=== PATIENT | male | born 1995 ===

== ENCOUNTER 2020-04-01 11:52 | Emergency (ER) | payer SELFPAY ==
[2020-04-01] MEDS ORDERED: SODIUM CHLORIDE 0.9% 1000 ML 1,000 ML IV ONE (12:42)
[2020-04-01] MEDS ORDERED: ONDANSETRON 4 MG/2 ML INJ IV ONE (12:42)
[2020-04-01] MEDS ORDERED: MORPHINE 4 MG/1 ML INJ IV ONE (12:42)
--- NOTE | 2020-04-01 12:48 | Event Note ---
ED Screening Note Date of service: 04/01/20 Time: 12:44 ED Screening Note: 25-year-old male presents to the emergency room stating he was sent from my clinic to rule out appendicitis. Patient states that he started having right lower quadrant pain last night approximately 9 PM. Patient admits to nausea vomiting fever and chills but denies any diarrhea or constipation. Patient denies any testicular pain testicular swelling no penile discharge or dysuria. Patient denies any past medical history currently takes no medications and has no known drug allergies. Patient states he last ate about 7 PM yesterday. Patient denies any surgeries. Reports he does not take any medications on a daily basis. Medical Records Coder [id number] was used This initial assessment/diagnostic orders/clinical plan/treatment(s) is/are subject to change based on patients health status, clinical progression and re- assessment by fellow clinical providers in the ED. Further treatment and workup at subsequent clinical providers discretion. Patient/guardian urged not to elope from the ED as their condition may be serious if not clinically assessed and managed. Initial orders include:
[2020-04-01 13:44] LABS: Basophils % (Auto) 0.1 % (0.0-1.8); Hematocrit 44.4 % (35.5-45.6); Hemoglobin 15.3 gm/dl (11.8-15.2); Lymphocytes # (Auto) 0.9 K/mm3 (1.2-5.4); Lymphocytes % (Auto) 4.8 % (13.4-35.0); Mean Corpuscular HGB Conc 35 % (32-34); Mean Corpuscular Volume 88 fl (84-94); Monocytes # (Auto) 1.2 K/mm3 (0.0-0.8); Monocytes % (Auto) 6.5 % (0.0-7.3); Platelet Count 301 K/mm3 (140-440); Red Blood Count 5.04 M/mm3 (3.65-5.03); Red Cell Distribution Width 12.9 % (13.2-15.2)
[2020-04-01 14:05] LABS: Alanine Aminotransferase 30 units/L (7-56); BUN/Creatinine Ratio 13; Blood Urea Nitrogen 16 mg/dL (9-20); Calcium 9.4 mg/dL (8.4-10.2); Hemolysis Index 10
[2020-04-01] MEDS ORDERED: PIPERACIL/TAZOBACTA 4.5/NS 100 4.5 GM/100 ML VIAL IV ONE (14:16)
--- NOTE | 2020-04-01 14:27 | Emergency Department Report ---
ED Abdominal Pain HPI - General Chief Complaint: Abdominal Pain Stated Complaint: ABD PAIN Time Seen by Provider: 04/01/20 12:40 Source: patient Mode of arrival: Ambulatory Limitations: No Limitations - History of Present Illness Initial Comments: This is a 25-year old [place]ian-speaking man who has had abdominal pain since 8:00 last night. At family's history in [place]. He has had a constant nonmigratory pain in the right lower quadrant. Moved his bowels at 9:00. It was normal. He is not complaining of nausea at this time. He felt like he probably had a fever and refers some chills. He did not actually measure his temperature. He went to [facility] and was sent here to rule out appendicitis. Patient denies any problem or swelling. He denies any previous operation. He denies taking any routine medications or previous hospitalizations. MD Complaint: abdominal pain -: Gradual, hour(s) Location: RLQ Radiation: none Migration to: no migration Severity: moderate, severe Quality: aching Consistency: constant Improves With: nothing Worsens With: nothing Associated Symptoms: denies other symptoms, fever (Subjective) - Related Data Previous Rx's Medication Instructions Recorded Last Taken Type HYDROcodone/APAP 5-325 [[place] 1 each PO Q6HR PRN #7 tablet 04/01/20 Unknown Rx 5/325] Allergies Allergy/AdvReac Type Severity Reaction Status Date / Time No Known Allergies Allergy Unverified 04/01/20 12:22 ED Review of Systems ROS: Stated complaint: ABD PAIN Other details as noted in HPI Constitutional: see HPI, chills, fever Eyes: denies: eye pain, eye discharge, vision change ENT: denies: ear pain, throat pain Respiratory: denies: cough, shortness of breath, wheezing Cardiovascular: denies: chest pain, palpitations Endocrine: no symptoms reported Gastrointestinal: abdominal pain. denies: nausea, diarrhea Genitourinary: denies: urgency, dysuria Musculoskeletal: denies: back pain, joint swelling, arthralgia Skin: denies: rash, lesions Neurological: denies: headache, weakness, paresthesias Psychiatric: denies: anxiety, depression Hematological/Lymphatic: denies: easy bleeding, easy bruising ED Past Medical Hx - Past Medical History Previous Medical History?: No - Surgical History Past Surgical History?: No - Social History Smoking Status: Never Smoker - Medications Home Medications: Home Medications Medication Instructions Recorded Confirmed Last Taken Type HYDROcodone/APAP 5-325 [[place] 1 each PO Q6HR PRN #7 tablet 04/01/20 Unknown Rx 5/325] ED Physical Exam - General Limitations: No Limitations General appearance: alert, in no apparent distress - Head Head exam: Present: atraumatic, normocephalic - Eye Eye exam: Present: normal appearance. Absent: scleral icterus - ENT ENT exam: Present: mucous membranes moist - Neck Neck exam: Present: normal inspection - Respiratory Respiratory exam: Present: normal lung sounds bilaterally. Absent: respiratory distress - Cardiovascular Cardiovascular Exam: Present: regular rate, normal rhythm. Absent: systolic murmur, diastolic murmur, rubs, gallop - GI/Abdominal GI/Abdominal exam: Present: soft, tenderness (Right lower quadrant to deep palpation only), normal bowel sounds. Absent: distended, guarding, rebound, rigid, organomegaly, mass, bruit, pulsatile mass, hernia - Rectal Rectal exam: Present: deferred - Extremities Exam Extremities exam: Present: normal inspection - Back Exam Back exam: Present: normal inspection - Neurological Exam Neurological exam: Present: alert, oriented X3, CN II-XII intact. Absent: motor sensory deficit - Psychiatric Psychiatric exam: Present: normal affect, normal mood - Skin Skin exam: Present: warm, dry, intact, normal color. Absent: rash ED Course Vital Signs 04/01/20 04/01/20 04/01/20 12:22 14:25 15:05 Temperature 98.9 F 98.2 F Pulse Rate 89 98 H Respiratory 16 16 16 Rate Blood Pressure 152/88 127/73 [Right] O2 Sat by Pulse 98 99 99 Oximetry - Reevaluation(s) Reevaluation #1: Presumptively, the patient has appendicitis. He will be given analgesia and IV fluids. He is given empiric antibiotic coverage. CT scan is yet pending. He is noted to have an elevated white blood cell count and is a bit hemoconcentrated. His glucose slightly elevated. Chemistries are otherwise unremarkable. 04/01/20 14:26 04/01/20 14:27 Reevaluation #2: Patient's pain is completely resolved. Urinalysis without compelling evidence of infection. We will send a culture anyway. Patient is now asymptomatic. He feels ready for discharge. 04/01/20 15:31 ED Medical Decision Making - Lab Data Result diagrams: 04/01/20 12:58 04/01/20 12:58 Laboratory Results - last 24 hr 04/01/20 04/01/20 04/01/20 12:58 12:58 14:45 WBC 18.9 H RBC 5.04 H Hgb 15.3 H Hct 44.4 MCV 88 MCH 30 MCHC 35 H RDW 12.9 L Plt Count 301 Lymph % (Auto) 4.8 L [place] % (Auto) 6.5 Eos % (Auto) 0.0 Baso % (Auto) 0.1 Lymph # (Auto) 0.9 L [place] # (Auto) 1.2 H Eos # (Auto) 0.0 Baso # (Auto) 0.0 Seg Neutrophils % 88.6 H Seg Neutrophils # 16.8 H Sodium 139 Potassium 3.8 Chloride 103.5 Carbon Dioxide 28 Anion Gap 11 BUN 16 Creatinine 1.2 Estimated GFR > 60 BUN/Creatinine Ratio 13 Glucose 129 H Calcium 9.4 Total Bilirubin 0.60 AST 22 ALT 30 Alkaline Phosphatase 62 Total Protein 8.4 H Albumin 5.0 Albumin/Globulin Ratio 1.5 Urine Color Yellow Urine Turbidity Clear Urine pH 5.0 Ur Specific [place] 1.030 Urine Protein 30 mg/dl Urine Glucose (UA) Neg Urine Ketones 20 Urine Blood Mod Urine Nitrite Neg Urine Bilirubin Neg Urine Urobilinogen < 2.0 Ur Leukocyte Esterase Neg Urine WBC (Auto) 1.0 Urine RBC (Auto) 8.0 Urine Mucus Few Critical care attestation.: If time is entered above; I have spent that time in minutes in the direct care of this critically ill patient, excluding procedure time. ED Disposition Clinical Impression: Renal colic on right side, Hydronephrosis of right kidney Disposition: DC-01 TO HOME OR SELFCARE Is pt being admited?: No Does the pt Need Aspirin: No Condition: Stable Additional Instructions: Follow-up at last clinic care. Return as needed any recurrent pain fever chills or worsening symptoms. Prescriptions: HYDROcodone/APAP 5-325 [[place] 5/325] 1 each PO Q6HR PRN #7 tablet PRN Reason: Pain Referrals: PRIMARY CARE,MD [Primary Care Provider] - 3-5 Days [facility] clinic [Other] - 2-3 Days Time of Disposition: 15:32
[2020-04-01 15:02] LABS: Bilirubin,Urine NEG (Negative); Color,Urine Yellow (Yellow); Mucus,Urine FEW /HPF; Urobilinogen,Urine < 2.0 mg/dL (<2.0)
--- NOTE | 2020-04-01 15:11 | Cat Scan Report ---
CT abdomen pelvis w con INDICATION / CLINICAL INFORMATION: MAIN. Right lower quadrant pain TECHNIQUE: Routine CT abdomen pelvis with contrast All CT scans at this location are performed using CT dose red uction for ALARA by means of automated exposure control. COMPARISON: None available. FINDINGS: There is mild to moderate right hydroureteronephrosis secondary to an obstructive 3 mm calculus at th e right ureterovesical junction. The appendix is grossly unremarkable aside from several high density intraluminal material is that may represent appendicoliths. The liver, gallbladder, spleen, pancreas adrenal glands and left kidney are unremarkable. No free air or free fluid. No free pelvic fluid. Ur inary bladder is unremarkable. IMPRESSION: Obstructive 3 mm calculus within the distal right ureter, as above Signer Name: Enrico Lagos MD Signed: 04/01/2020 3:07 PM Workstation Name: [id number]
[2020-04-01 16:31] LABS: Blood,Urine SM (Negative)
[2020-04-01 17:06] VITALS: BP 140/88
== END 2020-04-01 17:06 | disposition home or self-care (01) ==
LOC: ED 11:52
DX: N23 Unspecified renal colic (principal); N13.30 Unspecified hydronephrosis; Z79.899 Other long term (current) drug therapy
CPT/HCPCS: 36415; 74177; 80053; 81001; 85025; 87086; 96365; 96375; 99284; J2270; J2405; J2543; J7030; Q9967